=== PATIENT | female | born 1945 | race African-American/Black ===

== ENCOUNTER 2020-06-30 20:01 | Inpatient (IN) | payer OTHER ==
[~2020-06-30] VITALS: Ht 157.5 cm; Wt 127.5 kg
[2020-06-30] MEDS ORDERED: SODIUM CHLORIDE 0.9% 500 ML IVB ONE (20:15)
[2020-06-30 23:15] LABS: Basophils # (auto) 0 10 ^3/uL (0-0.2); Eosinophils # (auto) 0 10 ^3/uL (0-0.8); Hemoglobin 12.9 g/dL (12.2-16.2); Monocytes # (auto) 0.6 10 ^3/uL (0-1.3); Neutrophils # (auto) 4.2 10 ^3/uL (1.6-8.6); Red Cell Distribution Width 16.2 % (11.8-14.3); White Blood Cell 5.8 10^3/uL (4.4-10.8)
[2020-06-30 23:16] LABS: Basophils % (auto) 0.3 % (0.0-2.0); Hematocrit 39.5 % (36.0-46.0); Lymphocytes % (auto) 16.9 % (10.0-50.0); Mean Corpuscular Hemoglobin 27.1 pg (28.0-32.0); Mean Corpuscular Hgb Conc. 32.5 g/dL (32.0-36.0); Mean Corpuscular Volume 83.3 fL (80.0-100.0); Monocytes % (auto) 10.1 % (0.0-12.0); Neutrophils % (auto) 72.7 % (37.0-80.0); Nucleated Red Blood Cells % 0.1 %; Red Blood Cells 4.75 10^6/uL (4.0-5.20)
[2020-06-30 23:37] LABS: Alanine Aminotransferase 53 U/L (13-56); Albumin 2.6 g/dL (3.4-5.0); Anion Gap 9 (5-15); Aspartate Aminotransferase 77 U/L (15-37); BUN/Creatinine Ratio 15.4; Blood Urea Nitrogen 20 mg/dL (7-18); Calcium 8.1 mg/dL (8.5-10.1); Carbon Dioxide 23 mmol/L (21-32); Chloride 103 mmol/L (98-107); GFR African American 51 mL/min; GFR Non-African American 43 mL/min; Glucose 192 mg/dL (74-106); Sodium 135 mmol/L (136-145)
[2020-06-30 23:41] LABS: Alkaline Phosphatase 108 U/L (45-117); Bilirubin, Total 0.7 mg/dL (0.2-1.0)
[2020-06-30 23:44] LABS: Blood Alcohol < 3.0 mg/dL (0-5)
[2020-07-01 02:24] LABS: Alcohol, Urine < 3.0 mg/dL (0-10); Amphetamine Screen, Urine NEGATIVE (NEGATIVE); Barbiturate Scree,Urine NEGATIVE (NEGATIVE); Benzodiazephine Screen, Urine NEGATIVE (NEGATIVE); Cannabinoid Screen, Urine NEGATIVE (NEGATIVE); Cocaine Screen, Urine NEGATIVE (NEGATIVE); Opiate Scree,Urine NEGATIVE (NEGATIVE); Phencyclidine Screen, Urine NEGATIVE (NEGATIVE)
[2020-07-01 02:46] LABS: Urine Bacteria MANY /hpf (None Seen); Urine Blood 2+ /uL (Negative); Urine Mucus FEW (None Seen); Urine Specific Gravity 1.021 (1.001-1.035); Urine WBC 54 /hpf (0 - 5)
[2020-07-01] MEDS ORDERED: cefTRIAXone 1GM/50ML D5W 50 ML IV ONE (05:30)
[2020-07-01] MEDS ORDERED: DEXTROSE (50%) 50ML SYRG IV PRN (06:00)
[2020-07-01] MEDS ORDERED: NITROGLYCERIN 0.4 MG SL TAB SL PRN (06:00)
[2020-07-01] MEDS ORDERED: AMIODARONE HCL 150 MG in D5W 5% 100 ML IV ONE ×2 (06:00→06:30)
[2020-07-01] MEDS ORDERED: ONDANSETRON HCL 4 MG/2 ML VIAL IV PRN (06:00)
[2020-07-01] MEDS ORDERED: MORPHINE SULFATE INJECTION 2 MG/ML SYRG IV PRN (06:00)
[2020-07-01] MEDS ORDERED: ACETAMINOPHEN 325 MG TAB PO PRN (06:00)
[2020-07-01] MEDS ORDERED: AMIODARONE 450mg/250ml AE 250 ML IV SCH (06:15)
[2020-07-01 08:41] LABS: INR 1.7 (0.9-1.15)
[2020-07-01] MEDS: ACCU-CHEK COMFORT CURVE STRIP VI SCH ×3 (11:50→16:36)
[2020-07-01] MEDS: InsuLIN REG 1unit/0.01ml Soln (100units/ml) SC SCH ×3 (11:53→16:35)
[2020-07-01] MEDS: PANTOPRAZOLE 40 MG TAB PO SCH (12:02)
[2020-07-01] MEDS: D5W/SOD CHLO 0.9% 1,000 ML IV SCH (13:30)
[2020-07-01] MEDS: AMIODARONE 450mg/250ml AE 250 ML IV SCH (14:09)
[2020-07-01] MEDS ORDERED: WARFARIN SODIUM 1 MG TAB PO ONE (17:00)
[2020-07-01] MEDS ORDERED: REMDESIVIR PER PHARMACY 0 ML IV SCH (20:00)
[2020-07-01] MEDS ORDERED: DexAMETHasone SOD PHOS 10MG/1ML VIAL INJ IV ONE (20:00)
[2020-07-01] MEDS: DOXYCYCLINE 100MG/250ML 250 ML IV SCH (21:42)
[2020-07-01] MEDS: BUDESONIDE (INHALATION) 180 MCG IH IN SCH (22:00)
[2020-07-01] MEDS ORDERED: BUDESONIDE (INHALATION) 0.5 MG/2 ML NEB NEB SCH (22:00)
[2020-07-01] MEDS ORDERED: REMDESIVIR 200 MG in NS 210ml LOADING DOSE ADULT IV ONE (22:00)
[2020-07-02] MEDS: ACCU-CHEK COMFORT CURVE STRIP VI SCH ×5 (01:58→21:56)
[2020-07-02] MEDS: InsuLIN REG 1unit/0.01ml Soln (100units/ml) SC SCH ×5 (02:08→22:21)
[2020-07-02] MEDS: FAMOTIDINE (10MG/ML) 2ML VL IV SCH ×2 (05:30→08:19)
[2020-07-02 05:36] LABS: Basophils # (auto) 0 10 ^3/uL (0-0.2); Basophils % (auto) 0.1 % (0.0-2.0); Eosinophils # (auto) 0 10 ^3/uL (0-0.8); Hematocrit 39.7 % (36.0-46.0); Hemoglobin 12.8 g/dL (12.2-16.2); Lymphocytes # (auto) 0.5 10 ^3/uL (0.4-5.4); Mean Corpuscular Hemoglobin 27.2 pg (28.0-32.0); Mean Corpuscular Hgb Conc. 32.2 g/dL (32.0-36.0); Mean Corpuscular Volume 84.5 fL (80.0-100.0); Monocytes # (auto) 0.3 10 ^3/uL (0-1.3); Monocytes % (auto) 4.4 % (0.0-12.0); Neutrophils # (auto) 6.2 10 ^3/uL (1.6-8.6); Neutrophils % (auto) 88.5 % (37.0-80.0); Nucleated Red Blood Cells % 0.1 %; Red Cell Distribution Width 16.9 % (11.8-14.3)
[2020-07-02 05:49] LABS: INR 2.16 (0.9-1.15); Partial Thromboplastin Time 46.1 sec (23.0-31.2)
[2020-07-02 06:28] LABS: Potassium 4.3 mmol/L (3.5-5.1)
[2020-07-02 06:33] LABS: Albumin 2.4 g/dL (3.4-5.0); BUN/Creatinine Ratio 13.1
[2020-07-02 06:36] LABS: Bilirubin, Total 0.8 mg/dL (0.2-1.0); Total Protein 6.7 g/dL (6.4-8.2)
[2020-07-02] MEDS: AMIODARONE 450mg/250ml AE 250 ML IV SCH (08:15)
[2020-07-02] MEDS: DOXYCYCLINE 100MG/250ML 250 ML IV SCH ×2 (08:16→20:35)
[2020-07-02] MEDS: DexAMETHasone SOD PHOS 10MG/1ML VIAL INJ IV SCH (08:16)
[2020-07-02] MEDS: PANTOPRAZOLE 40 MG TAB PO SCH (08:16)
[2020-07-02] MEDS: cefTRIAXone 1GM/50ML D5W 50 ML IV SCH (08:16)
[2020-07-02] MEDS: D5W/SOD CHLO 0.9% 1,000 ML IV SCH ×2 (08:16→11:57)
[2020-07-02] MEDS: BUDESONIDE (INHALATION) 180 MCG IH IN SCH ×2 (15:24→23:00)
[2020-07-02] MEDS ORDERED: AMIODARONE HCL 200 MG TAB PO ONE (16:15)
[2020-07-02] MEDS: REMDESIVIR 100 MG in SODIUM CHL 0.9% 250 ML IV SCH (16:24)
[2020-07-02] MEDS ORDERED: WARFARIN SODIUM 1 MG TAB PO ONE (17:00)
[2020-07-02] MEDS: AMIODARONE HCL 200 MG TAB PO SCH (22:13)
[2020-07-02 23:39] VITALS: BP 126/68
[2020-07-03] VITALS: BP 126/68
[2020-07-03] MEDS ORDERED: METF-370 PO (02:04)
[2020-07-03] MEDS: TEMAZEPAM 15 MG CAP PO PRN (04:25)
[2020-07-03 06:35] LABS: INR 3.95 (0.9-1.15)
[2020-07-03] MEDS: ACCU-CHEK COMFORT CURVE STRIP VI SCH ×4 (06:36→21:21)
[2020-07-03 06:47] LABS: Urine Bacteria NONE SEEN /hpf (None Seen); Urine Blood 2+ /uL (Negative); Urine Hyaline Cast MOD /lpf (0 - 2); Urine Mucus FEW (None Seen); Urine Specific Gravity 1.027 (1.001-1.035); Urine WBC 25 /hpf (0 - 5)
[2020-07-03] MEDS: InsuLIN REG 1unit/0.01ml Soln (100units/ml) SC SCH ×4 (06:49→21:24)
[2020-07-03 08:00] VITALS: BP 146/75
[2020-07-03] MEDS: DexAMETHasone SOD PHOS 10MG/1ML VIAL INJ IV SCH (09:40)
[2020-07-03] MEDS: DOXYCYCLINE 100MG/250ML 250 ML IV SCH ×2 (09:40→19:51)
[2020-07-03] MEDS: FAMOTIDINE (10MG/ML) 2ML VL IV SCH (09:41)
[2020-07-03] MEDS: PANTOPRAZOLE 40 MG TAB PO SCH (09:41)
[2020-07-03] MEDS: AMIODARONE HCL 200 MG TAB PO SCH ×2 (09:41→21:15)
[2020-07-03] MEDS ORDERED: FAMOTIDINE (10MG/ML) 2ML VL IV SCH (10:00)
[2020-07-03] MEDS: BUDESONIDE (INHALATION) 180 MCG IH IN SCH ×2 (10:00→19:00)
[2020-07-03] MEDS: cefTRIAXone 1GM/50ML D5W 50 ML IV SCH (11:54)
[2020-07-03] MEDS: REMDESIVIR 100 MG in SODIUM CHL 0.9% 250 ML IV SCH (15:00)
[2020-07-03 16:16] VITALS: BP 109/68
[2020-07-04] VITALS: BP 111/63
[2020-07-04] MEDS: ACCU-CHEK COMFORT CURVE STRIP VI SCH ×4 (06:23→21:26)
[2020-07-04] MEDS: InsuLIN REG 1unit/0.01ml Soln (100units/ml) SC SCH ×4 (06:27→21:27)
[2020-07-04 08:00] VITALS: BP 105/69
[2020-07-04] MEDS: cefTRIAXone 1GM/50ML D5W 50 ML IV SCH (09:35)
[2020-07-04] MEDS: DOXYCYCLINE 100MG/250ML 250 ML IV SCH ×2 (09:35→19:53)
[2020-07-04] MEDS: AMIODARONE HCL 200 MG TAB PO SCH ×2 (09:36→21:26)
[2020-07-04] MEDS: DexAMETHasone SOD PHOS 10MG/1ML VIAL INJ IV SCH (09:36)
[2020-07-04] MEDS: FAMOTIDINE (10MG/ML) 2ML VL IV SCH (09:36)
[2020-07-04] MEDS: PANTOPRAZOLE 40 MG TAB PO SCH (09:37)
[2020-07-04] MEDS: BUDESONIDE (INHALATION) 180 MCG IH IN SCH ×2 (10:00→19:10)
[2020-07-04 12:52] LABS: INR 4.86 (0.9-1.15)
[2020-07-04 12:58] LABS: Basophils # (auto) 0.1 10 ^3/uL (0-0.2); Basophils % (auto) 0.7 % (0.0-2.0); Eosinophils # (auto) 0 10 ^3/uL (0-0.8); Eosinophils % (auto) 0.1 % (0.0-7.0); Hematocrit 41.3 % (36.0-46.0); Hemoglobin 13.6 g/dL (12.2-16.2); Lymphocytes # (auto) 0.4 10 ^3/uL (0.4-5.4); Lymphocytes % (auto) 4.7 % (10.0-50.0); Mean Corpuscular Hemoglobin 27.1 pg (28.0-32.0); Mean Corpuscular Hgb Conc. 32.9 g/dL (32.0-36.0); Mean Corpuscular Volume 82.2 fL (80.0-100.0); Monocytes # (auto) 0.6 10 ^3/uL (0-1.3); Monocytes % (auto) 6.7 % (0.0-12.0); Neutrophils # (auto) 7.6 10 ^3/uL (1.6-8.6); Neutrophils % (auto) 87.8 % (37.0-80.0); Nucleated Red Blood Cells % 0.1 %; Red Blood Cells 5.03 10^6/uL (4.0-5.20); Red Cell Distribution Width 16.5 % (11.8-14.3); White Blood Cell 8.6 10^3/uL (4.4-10.8)
[2020-07-04 15:19] LABS: Anion Gap 7 (5-15); Blood Urea Nitrogen 36 mg/dL (7-18); Carbon Dioxide 22 mmol/L (21-32); Chloride 104 mmol/L (98-107); GFR African American 56 mL/min; GFR Non-African American 47 mL/min; Glucose 351 mg/dL (74-106); Potassium 4.2 mmol/L (3.5-5.1); Sodium 133 mmol/L (136-145)
[2020-07-04 15:20] LABS: Alanine Aminotransferase 59 U/L (13-56); Alkaline Phosphatase 120 U/L (45-117); Aspartate Aminotransferase 48 U/L (15-37); Bilirubin, Total 0.5 mg/dL (0.2-1.0); Calcium 8.6 mg/dL (8.5-10.1)
[2020-07-04 15:21] LABS: Albumin 2.2 g/dL (3.4-5.0); Total Protein 7.1 g/dL (6.4-8.2)
[2020-07-04 16:00] VITALS: BP 96/59
[2020-07-04] MEDS: REMDESIVIR 100 MG in SODIUM CHL 0.9% 250 ML IV SCH (16:09)
[2020-07-04] MEDS: NYSTATIN TOPICAL POWDER 15GM TOP SCH (22:02)
[2020-07-05] VITALS: BP 119/70
[2020-07-05] MEDS: ACCU-CHEK COMFORT CURVE STRIP VI SCH ×4 (06:12→22:04)
[2020-07-05] MEDS: InsuLIN REG 1unit/0.01ml Soln (100units/ml) SC SCH ×4 (06:14→22:10)
[2020-07-05 07:15] LABS: Albumin 2.2 g/dL (3.4-5.0); Calcium 8.7 mg/dL (8.5-10.1); Potassium 4.3 mmol/L (3.5-5.1)
[2020-07-05 07:18] LABS: Bilirubin, Total 0.4 mg/dL (0.2-1.0); Total Protein 6.5 g/dL (6.4-8.2)
[2020-07-05 07:24] LABS: INR 3.49 (0.9-1.15); Partial Thromboplastin Time 40.5 sec (23.0-31.2)
[2020-07-05 08:00] VITALS: BP 118/69
[2020-07-05] MEDS: BUDESONIDE (INHALATION) 180 MCG IH IN SCH ×2 (10:00→19:48)
[2020-07-05] MEDS: DOXYCYCLINE 100MG/250ML 250 ML IV SCH ×2 (10:14→19:50)
[2020-07-05] MEDS: cefTRIAXone 1GM/50ML D5W 50 ML IV SCH (10:14)
[2020-07-05] MEDS: DexAMETHasone SOD PHOS 10MG/1ML VIAL INJ IV SCH (10:14)
[2020-07-05] MEDS: FAMOTIDINE (10MG/ML) 2ML VL IV SCH (10:14)
[2020-07-05] MEDS: PANTOPRAZOLE 40 MG TAB PO SCH (10:15)
[2020-07-05] MEDS: AMIODARONE HCL 200 MG TAB PO SCH ×2 (10:15→22:04)
[2020-07-05] MEDS: NYSTATIN TOPICAL POWDER 15GM TOP SCH ×2 (10:23→22:04)
[2020-07-05] MEDS: REMDESIVIR 100 MG in SODIUM CHL 0.9% 250 ML IV SCH (15:46)
[2020-07-05 16:00] VITALS: BP 133/70
[2020-07-06] VITALS: BP 131/72
[2020-07-06] MEDS: ACCU-CHEK COMFORT CURVE STRIP VI SCH ×5 (06:35→23:17)
[2020-07-06] MEDS: InsuLIN REG 1unit/0.01ml Soln (100units/ml) SC SCH ×5 (06:38→23:27)
[2020-07-06 07:16] LABS: Basophils # (auto) 0 10 ^3/uL (0-0.2); Eosinophils # (auto) 0 10 ^3/uL (0-0.8); Eosinophils % (auto) 0.1 % (0.0-7.0); Hematocrit 37.6 % (36.0-46.0); Hemoglobin 12.4 g/dL (12.2-16.2); Lymphocytes # (auto) 0.7 10 ^3/uL (0.4-5.4); Lymphocytes % (auto) 9.2 % (10.0-50.0); Mean Corpuscular Hgb Conc. 32.9 g/dL (32.0-36.0); Mean Corpuscular Volume 82.1 fL (80.0-100.0); Monocytes # (auto) 0.7 10 ^3/uL (0-1.3); Monocytes % (auto) 9.5 % (0.0-12.0); Neutrophils % (auto) 81.2 % (37.0-80.0); Red Blood Cells 4.58 10^6/uL (4.0-5.20); Red Cell Distribution Width 16.3 % (11.8-14.3); White Blood Cell 7.4 10^3/uL (4.4-10.8)
[2020-07-06 07:30] LABS: INR 2.66 (0.9-1.15)
[2020-07-06 07:42] LABS: Albumin 2.3 g/dL (3.4-5.0); Calcium 8.9 mg/dL (8.5-10.1); Potassium 4.7 mmol/L (3.5-5.1)
[2020-07-06 07:48] LABS: BUN/Creatinine Ratio 35.2; Bilirubin, Total 0.4 mg/dL (0.2-1.0); Total Protein 6.6 g/dL (6.4-8.2)
[2020-07-06 08:00] VITALS: BP 134/81
[2020-07-06] MEDS: BUDESONIDE (INHALATION) 180 MCG IH IN SCH ×2 (08:59→19:10)
[2020-07-06] MEDS: DOXYCYCLINE 100MG/250ML 250 ML IV SCH ×2 (09:19→20:53)
[2020-07-06] MEDS: cefTRIAXone 1GM/50ML D5W 50 ML IV SCH (09:19)
[2020-07-06] MEDS: PANTOPRAZOLE 40 MG TAB PO SCH (09:20)
[2020-07-06] MEDS: DexAMETHasone SOD PHOS 10MG/1ML VIAL INJ IV SCH (09:20)
[2020-07-06] MEDS: AMIODARONE HCL 200 MG TAB PO SCH ×2 (09:20→23:07)
[2020-07-06] MEDS: NYSTATIN TOPICAL POWDER 15GM TOP SCH ×2 (10:00→23:07)
[2020-07-06] MEDS ORDERED: FAMOTIDINE (10MG/ML) 2ML VL IV SCH ×2 (10:00)
[2020-07-06] MEDS ORDERED: FAMO20TA10 PO (13:50)
[2020-07-06] MEDS ORDERED: AMIO200T4 PO (13:50)
[2020-07-06] MEDS ORDERED: PRED20TA2 PO (13:50)
[2020-07-06] MEDS ORDERED: ALBU108A5 IN (13:50)
[2020-07-06] MEDS ORDERED: DOXY-286 PO (13:50)
[2020-07-06] MEDS ORDERED: WARF1TAB36 PO (14:56)
[2020-07-06] MEDS ORDERED: GLIP-110 PO (14:56)
[2020-07-06] MEDS ORDERED: ALLO300T2 PO (14:56)
[2020-07-06] MEDS ORDERED: BUPR100T14 PO (14:56)
[2020-07-06] MEDS ORDERED: LOVA40TA72 PO (14:56)
[2020-07-06] MEDS ORDERED: METO25TA5 PO (14:56)
[2020-07-06] MEDS ORDERED: METF-371 PO (14:56)
[2020-07-06 15:35] VITALS: BP 92/51
[2020-07-06] MEDS ORDERED: DEXTROSE (50%) 50ML SYRG IV PRN (18:00)
[2020-07-06] MEDS: TEMAZEPAM 15 MG CAP PO PRN (23:27)
[2020-07-07] VITALS: BP 119/67
[2020-07-07 05:49] LABS: Basophils # (auto) 0 10 ^3/uL (0-0.2); Basophils % (auto) 0.2 % (0.0-2.0); Eosinophils # (auto) 0.1 10 ^3/uL (0-0.8); Eosinophils % (auto) 1.7 % (0.0-7.0); Hematocrit 37.7 % (36.0-46.0); Hemoglobin 12.6 g/dL (12.2-16.2); Lymphocytes # (auto) 0.7 10 ^3/uL (0.4-5.4); Lymphocytes % (auto) 8.8 % (10.0-50.0); Mean Corpuscular Hemoglobin 27.5 pg (28.0-32.0); Mean Corpuscular Hgb Conc. 33.3 g/dL (32.0-36.0); Mean Corpuscular Volume 82.6 fL (80.0-100.0); Monocytes # (auto) 0.7 10 ^3/uL (0-1.3); Monocytes % (auto) 8.2 % (0.0-12.0); Neutrophils # (auto) 6.5 10 ^3/uL (1.6-8.6); Neutrophils % (auto) 81.1 % (37.0-80.0); Nucleated Red Blood Cells % 0.1 %; Red Blood Cells 4.57 10^6/uL (4.0-5.20); Red Cell Distribution Width 16.5 % (11.8-14.3)
[2020-07-07 06:01] LABS: INR 2.11 (0.9-1.15)
[2020-07-07] MEDS: ACCU-CHEK COMFORT CURVE STRIP VI SCH ×3 (06:20→18:34)
[2020-07-07] MEDS: InsuLIN REG 1unit/0.01ml Soln (100units/ml) SC SCH ×3 (06:23→18:34)
[2020-07-07] MEDS: BUDESONIDE (INHALATION) 180 MCG IH IN SCH (06:31)
[2020-07-07 08:20] VITALS: BP 126/64
[2020-07-07] MEDS: DOXYCYCLINE 100MG/250ML 250 ML IV SCH (09:06)
[2020-07-07] MEDS: AMIODARONE HCL 200 MG TAB PO SCH (09:06)
[2020-07-07] MEDS: PANTOPRAZOLE 40 MG TAB PO SCH (09:06)
[2020-07-07] MEDS: DexAMETHasone SOD PHOS 10MG/1ML VIAL INJ IV SCH (09:06)
[2020-07-07] MEDS: NYSTATIN TOPICAL POWDER 15GM TOP SCH (09:16)
[2020-07-07] MEDS: cefTRIAXone 1GM/50ML D5W 50 ML IV SCH (13:39)
[2020-07-07 16:00] VITALS: BP 139/69
[2020-07-07] MEDS ORDERED: WARFARIN SODIUM 1 MG TAB PO ONE (17:00)
== END 2020-07-07 19:25 | disposition home or self-care (01) | DRG 177 ==
LOC: EDBD 20:01 → ER 20:05 → TELE 20:06 → TELE-WESTW 07-02 20:56
PROVIDERS: ADMIT Nurse Practitioner; ATTEND Hospitalist
PROC: XW033E5 Introduction of Remdesivir Anti-infective into Peripheral Vein, Percutaneous Approach, New Technology Group 5 (ICD-10-PCS; principal; 2020-07-02)
PROC: B54MZZA Ultrasonography of Right Upper Extremity Veins, Guidance (ICD-10-PCS; 2020-07-04)
PROC: 05HB33Z Insertion of Infusion Device into Right Basilic Vein, Percutaneous Approach (ICD-10-PCS; 2020-07-04)
DX: U07.1 COVID-19 (principal); G93.41 Metabolic encephalopathy; J12.82 Pneumonia due to coronavirus disease 2019; J96.01 Acute respiratory failure with hypoxia; N39.0 Urinary tract infection, site not specified; E44.0 Moderate protein-calorie malnutrition; D68.4 Acquired coagulation factor deficiency; I13.0 Hypertensive heart and chronic kidney disease with heart failure and stage 1 through stage 4 chronic kidney disease, or unspecified chronic kidney disease; J98.11 Atelectasis; Z68.43 Body mass index [BMI] 50.0-59.9, adult; E66.01 Morbid (severe) obesity due to excess calories; E78.5 Hyperlipidemia, unspecified; E11.22 Type 2 diabetes mellitus with diabetic chronic kidney disease; F17.210 Nicotine dependence, cigarettes, uncomplicated; I48.91 Unspecified atrial fibrillation; Z90.710 Acquired absence of both cervix and uterus; I50.9 Heart failure, unspecified; N18.31 Chronic kidney disease, stage 3a
CPT/HCPCS: 36415; 70450; 71045; 71250; 80053; 80307; 80320; 81001; 82728; 82962; 83605; 84443; 84484; 85025; 85379; 85610; 85730; 86141; 87040; 87077; 87086; 87186; 87426; 93306; 93970; 94640; 96360; 96361; 97110; 97163; 97530; G0378; J0696; J1100; J1815; J3490; J7060